=== PATIENT | male | born 1950 | race Caucasian/White ===

== ENCOUNTER 2017-06-02 01:55 | Emergency (ER) | payer SELFPAY ==
[~2017-06-02] VITALS: Ht 190.5 cm; Wt 117.9 kg
[2017-06-02 02:06] VITALS: Ht 190.5 cm; Wt 117.9 kg
[2017-06-02 05:03] VITALS: BP 131/72
== END 2017-06-02 05:03 | disposition home or self-care (01) ==
LOC: ED 01:55
DX: S61.412A Laceration without foreign body of left hand, initial encounter (principal); S61.216A Laceration without foreign body of right little finger without damage to nail, initial encounter; E78.00 Pure hypercholesterolemia, unspecified; W54.0XXA Bitten by dog, initial encounter; Y93.89 Activity, other specified; Y99.8 Other external cause status; Y92.89 Other specified places as the place of occurrence of the external cause
CPT/HCPCS: 90715; J1170; J1885; J2001; Q0092; Q0162